=== PATIENT | female | born 1995 | race Caucasian/White ===

== ENCOUNTER 2021-04-15 08:11 | Inpatient (IN) | payer OTHER ==
[~2021-04-15] VITALS: Ht 152.4 cm; Wt 3.2 kg
[2021-04-16] MEDS ORDERED: PRENATAL + DHA1 EAC1 PO (09:24)
[2021-04-17] MEDS ORDERED: IRON325 MG PO (09:58)
[2021-04-17] MEDS ORDERED: IBU800 MG PO (09:58)
[2021-04-17] MEDS ORDERED: VITAMIN C500 M6 PO (09:58)
[2021-04-17] MEDS ORDERED: SIMETHICONE125 M1 PO (09:58)
[2021-04-17] MEDS ORDERED: COLACE100 MG PO (09:58)
== END 2021-04-17 12:45 | disposition home or self-care (01) | DRG 786 ==
LOC: O/R 08:11 → LDR 08:11 → OB/GYN 08:11 → O/R 12:12 → OB/GYN 14:58
PROVIDERS: ADMIT Specialist; ATTEND Specialist
PROC: 4A1HXFZ Monitoring of Products of Conception, Cardiac Rhythm, External Approach (ICD-10-PCS; 2021-04-15)
PROC: 10D00Z1 Extraction of Products of Conception, Low, Open Approach (ICD-10-PCS; principal; 2021-04-15 12:15)
DX: O34.211 Maternal care for low transverse scar from previous cesarean delivery (principal); U07.1 COVID-19; O98.52 Other viral diseases complicating childbirth; Z30.2 Encounter for sterilization; Z3A.39 39 weeks gestation of pregnancy; Z37.0 Single live birth